=== PATIENT | female | born 1935 | race Two or more races ===

== ENCOUNTER 2019-02-02 10:22 | Inpatient (IN) | payer MEDICAID, OTHER ==
[2019-02-02] VITALS (11 sets, daily range): BP systolic 115–148; BP diastolic 46–93
[~2019-02-02] VITALS: Ht 157.5 cm; Wt 75.3 kg
[2019-02-02 10:59] LABS: Basophils # (auto) 0 uL; Lymphocytes # (auto) 1.4 uL
[2019-02-02 11:00] LABS: Basophils % (auto) 0.8 % (0.0-2.0); Eosinophils # (auto) 0.2 uL; Eosinophils % (auto) 2.7 % (0.0-7.0); Hematocrit 20.5 % (36.0-46.0); Lymphocytes % (auto) 23.7 % (10.0-50.0); Mean Corpuscular Hemoglobin 21.3 pg (28.0-32.0); Mean Corpuscular Hgb Conc. 31.6 g/dL (32.0-36.0); Mean Corpuscular Volume 67.3 fL (80.0-100.0); Monocytes # (auto) 0.4 uL; Monocytes % (auto) 6.8 % (0.0-12.0); Nucleated Red Blood Cells % 0.1 %; Platelet Count (auto) 189 10^3/uL (140-450); Red Blood Cells 3.05 10^6/uL (4.0-5.20)
[2019-02-02 11:04] LABS: Hemoglobin 6.5 g/dL (12.2-16.2); Red Cell Distribution Width 23.5 % (11.8-14.3)
[2019-02-02 11:18] LABS: Albumin 3.4 g/dL (3.4-5.0); Anion Gap 10 (5-15); Aspartate Aminotransferase 18 U/L (15-37); Blood Urea Nitrogen 21 mg/dL (7-18); Calcium 8.7 mg/dL (8.5-10.1); Carbon Dioxide 21 mmol/L (21-32); Chloride 108 mmol/L (98-107); GFR African American 68 mL/min; GFR Non-African American 56 mL/min; Glucose 269 mg/dL (74-106); Magnesium 2.3 mg/dL (1.6-2.6); Potassium 4.2 mmol/L (3.5-5.1); Sodium 139 mmol/L (136-145)
[2019-02-02 11:23] LABS: Alanine Aminotransferase 21 U/L (13-56); Alkaline Phosphatase 43 U/L (45-117); Bilirubin, Total 0.4 mg/dL (0.2-1.0); Total Protein 7.5 g/dL (6.4-8.2)
[2019-02-02] MEDS ORDERED: SODIUM CHLORIDE 0.9% 1,000 ML IVB ONE (12:01)
[2019-02-02] MEDS ORDERED: PANTOPRAZOLE 40 MG/10 ML VIAL INJ IV ONE (12:30)
[2019-02-02 12:51] LABS: Magnesium 2.1 mg/dL (1.6-2.6)
[2019-02-02 13:16] LABS: INR 0.95 (0.9-1.15); Partial Thromboplastin Time 23.4 sec (23.78-33.04); Prothrombin Time 10.2 sec (9.27-12.13)
[2019-02-02 14:55] LABS: Urine Bacteria MOD /hpf (None Seen); Urine Blood Negative /uL (Negative); Urine Specific Gravity 1.014 (1.001-1.035); Urine WBC 18 /hpf (0 - 5)
[2019-02-02] MEDS ORDERED: cefTRIAXone 1GM/50ML D5W 50 ML IV ONE (16:15)
[2019-02-02] MEDS ORDERED: SODIUM CHLORIDE 0.9% 1,000 ML IV ONE (16:30)
[2019-02-02] MEDS ORDERED: MORPHINE SULF INJ 2 MG/ML SYRINGE 1ML IV PRN (16:30)
[2019-02-02] MEDS ORDERED: NITROGLYCERIN 0.4 MG SL TAB SL PRN (16:30)
[2019-02-02] MEDS ORDERED: ACETAMINOPHEN 325 MG TAB PO PRN (16:30)
[2019-02-02] MEDS: PANTOPRAZOLE 80 MG in SODIUM CHL 0.9% 60 ML IV SCH (18:14)
[2019-02-02] MEDS ORDERED: PANTOPRAZOLE 80 MG in SODIUM CHL 0.9% 60 ML IV ONE (20:30)
--- NOTE | 2019-02-02 20:58 | NUR ---
OPENING NOTES RECEIVED PT FROM ED WITH NO SBAR HANDOFF REPORT. PT A/O X4 WITH NO S/S OF DISTRESS NOR PAIN. PT IS STABLE WITH NO S/S OF SOB. BED IS IN LOWEST POSITION WITH SIDE RAILS UP X 2. BED BRAKES ARE LOCKED AND CALL LIGHT IS WITH IN REACH. HOB IS 30 DEGREES. DISCUSSED POC WITH PATIENT AND PT VERBALIZED UNDERSTANDING.
[2019-02-02] MEDS ORDERED: GLIP-116 PO (22:04)
[2019-02-02] MEDS ORDERED: CLOP75TA28 PO (22:04)
[2019-02-02] MEDS ORDERED: METF-370 PO (22:04)
[2019-02-02] MEDS: HYDROcodone-ACET 5/325MG TAB PO PRN (23:06)
[2019-02-03] MEDS: PANTOPRAZOLE 80 MG in SODIUM CHL 0.9% 60 ML IV SCH ×3 (03:29→22:41)
[2019-02-03 05:00] VITALS: BP 117/63
[2019-02-03 06:16] LABS: Basophils # (auto) 0 uL; Eosinophils # (auto) 0.2 uL; Hematocrit 25.2 % (36.0-46.0); Hemoglobin 8.3 g/dL (12.2-16.2); Lymphocytes # (auto) 1.8 uL; Mean Corpuscular Hgb Conc. 32.8 g/dL (32.0-36.0); Nucleated Red Blood Cells % 0.2 %; Platelet Count (auto) 162 10^3/uL (140-450)
[2019-02-03 06:19] LABS: Basophils % (auto) 0.6 % (0.0-2.0); Eosinophils % (auto) 2.6 % (0.0-7.0); Lymphocytes % (auto) 29.9 % (10.0-50.0); Mean Corpuscular Hemoglobin 23.1 pg (28.0-32.0); Mean Corpuscular Volume 70.4 fL (80.0-100.0); Monocytes # (auto) 0.6 uL; Monocytes % (auto) 9.5 % (0.0-12.0); Neutrophils # (auto) 3.5 uL; Neutrophils % (auto) 57.4 % (37.0-80.0); Red Blood Cells 3.58 10^6/uL (4.0-5.20)
[2019-02-03 06:22] LABS: Red Cell Distribution Width 22.8 % (11.8-14.3)
[2019-02-03 06:24] LABS: Potassium 3.6 mmol/L (3.5-5.1)
[2019-02-03 06:27] LABS: BUN/Creatinine Ratio 18.2
--- NOTE | 2019-02-03 07:11 | NUR ---
closing notes endorsed care to day shift nurse
[2019-02-03 08:00] VITALS: BP 135/68
--- NOTE | 2019-02-03 08:00 | NUR ---
PT OFF UNIT TO PREOP FOR EGD VIA BED, NO S/S OF ACUTE DISTRESS NOTED. VS: 98.1, 135/68, 92, 18, 96%, 0/10.
[2019-02-03] MEDS ORDERED: SODIUM CHLORIDE LOCK 10 ML ONE (08:25)
[2019-02-03] MEDS ORDERED: NALOXONE HCL 0.4 MG/ML VIAL ONE (08:25)
[2019-02-03] MEDS ORDERED: LIDOCAINE VISCOUS 2% 15ML UD ONE (08:25)
[2019-02-03] MEDS ORDERED: FLUMAZENIL 0.1 MG/ML INJ 10ML MDV IV ONE (08:25)
[2019-02-03] MEDS ORDERED: diphenhdrAMINE HCL 50 MG/1 ML VL ONE (08:26)
[2019-02-03] MEDS: MIDAZOLAM HCL 5 MG/ML-1ML VIAL ONE ×2 (08:48→08:52)
[2019-02-03] MEDS: fentaNYL CITRATE 100 MCG/2 ML VL ONE ×2 (08:48→08:52)
[2019-02-03] MEDS ORDERED: GOLYTELY 4L KIT PO ONE (09:15)
--- NOTE | 2019-02-03 10:08 | NUR ---
PT BACK TO ROOM. S/P EGD, DAUGHTER AT BEDSIDE. AAO3, BREATHING EVEN UNLABORED, S1, S2, ABD SOFT NONTENDER. VS: 98.2, 16, 110/47, 82, 90% ON 2L VIA N/C, 0/10. WILL CONTINUE TO MONITOR.
[2019-02-03 11:33] VITALS: BP 122/62
[2019-02-03 16:27] VITALS: BP 139/64
--- NOTE | 2019-02-03 16:55 | NUR ---
DR. BAL AT BEDSIDE. NEW ORDER INSULIN ON MILD SCALE. WILL CARRY OUT ORDER.
[2019-02-03] MEDS: InsuLIN REG 1unit/0.01ml Soln (100units/ml) SC SCH ×2 (17:00→22:00)
[2019-02-03] MEDS ORDERED: DEXTROSE (50%) 50ML SYRG IV PRN (17:30)
[2019-02-03] MEDS: ACCU-CHEK COMFORT CURVE STRIP VI SCH ×2 (18:23→22:01)
--- NOTE | 2019-02-03 19:31 | NUR ---
CARE ENDORSED TO LEONEL BONNER.
--- NOTE | 2019-02-03 19:45 | NUR ---
Opening Shift Note Assumed care of patient, awake and alert oriented x4. No S/S of distress/SOB noted. Family at the bedside. Bed is in lowest locked position with bed rails up x2 and call light is within reach of the patient. Instructed on POC and to call for assist PRN.
[2019-02-03 22:00] VITALS: BP 156/83
[2019-02-03] MEDS: HYDROcodone-ACET 5/325MG TAB PO PRN (22:47)
[2019-02-04 05:00] VITALS: BP 111/60
[2019-02-04 06:08] LABS: Basophils # (auto) 0 uL; Basophils % (auto) 0.4 % (0.0-2.0); Eosinophils # (auto) 0.1 uL; Hemoglobin 8.8 g/dL (12.2-16.2); Mean Corpuscular Hemoglobin 23.2 pg (28.0-32.0); Monocytes # (auto) 0.5 uL; Nucleated Red Blood Cells % 0.1 %
[2019-02-04 06:10] LABS: Hematocrit 26.4 % (36.0-46.0); Lymphocytes # (auto) 2.2 uL; Lymphocytes % (auto) 35.1 % (10.0-50.0); Mean Corpuscular Hgb Conc. 33.2 g/dL (32.0-36.0); Mean Corpuscular Volume 69.8 fL (80.0-100.0); Monocytes % (auto) 7.6 % (0.0-12.0); Neutrophils # (auto) 3.4 uL; Neutrophils % (auto) 54.9 % (37.0-80.0); Platelet Count (auto) 165 10^3/uL (140-450); Red Blood Cells 3.78 10^6/uL (4.0-5.20); White Blood Cell 6.3 10^3/uL (4.4-10.8)
[2019-02-04 06:29] LABS: BUN/Creatinine Ratio 12.3; Calcium 7.9 mg/dL (8.5-10.1); Potassium 3.8 mmol/L (3.5-5.1)
[2019-02-04 06:58] LABS: Red Cell Distribution Width 23.3 % (11.8-14.3)
[2019-02-04] MEDS: InsuLIN REG 1unit/0.01ml Soln (100units/ml) SC SCH ×3 (07:00→17:56)
[2019-02-04] MEDS: ACCU-CHEK COMFORT CURVE STRIP VI SCH ×3 (07:00→17:55)
--- NOTE | 2019-02-04 07:26 | NUR ---
OR called: Patient to be brought down to OR at 0800. Care endorsed to day shift nurse.
[2019-02-04] MEDS ORDERED: FLUMAZENIL 0.1 MG/ML INJ 10ML MDV IV ONE (07:56)
[2019-02-04] MEDS ORDERED: NALOXONE HCL 0.4 MG/ML VIAL ONE (07:56)
[2019-02-04] MEDS ORDERED: SODIUM CHLORIDE LOCK 10 ML ONE (07:57)
[2019-02-04 08:00] VITALS: BP 122/62
--- NOTE | 2019-02-04 08:05 | NUR ---
PT OFF UNIT TO PREOP FOR COLONOSCOPY VIA BED, NO S/S OF ACUTE DISTRESS NOTED. VS WNL.
[2019-02-04] MEDS: MIDAZOLAM HCL 5 MG/ML-1ML VIAL ONE ×2 (08:28→08:32)
[2019-02-04] MEDS: fentaNYL CITRATE 100 MCG/2 ML VL ONE ×2 (08:28→08:32)
[2019-02-04 09:00] VITALS: BP 135/62
--- NOTE | 2019-02-04 10:38 | NUR ---
PAGED DR. GOMEZ PER DR. BAL REGARDING CLEARANCE FOR D/C. AWAITING RESPONSE.
--- NOTE | 2019-02-04 10:55 | NUR ---
PT BACK TO ROOM S/P COLONOSCOPY. VS: 97.9, 16, 79, 122/64, 96%, 0/10 ON 2L VIA N/C. FAMILY AT BEDSIDE.
[2019-02-04] MEDS: PANTOPRAZOLE 80 MG in SODIUM CHL 0.9% 60 ML IV SCH ×2 (11:09→19:15)
--- NOTE | 2019-02-04 11:40 | NUR ---
PER DR GOMEZ PT IS CLEARED TO GO HOME. ADVANCE DIET TOLERATE. WILL NOTIFY DR. VALERIANO Pulliam
--- NOTE | 2019-02-04 12:45 | NUR ---
PT TOLERATED CARDIAC 2G NA LOW CHOLEST. NO N/V OR ABD PAIN. WILL CONTINUE CARE.
[2019-02-04 13:00] VITALS: BP 121/58
[2019-02-04 16:42] VITALS: BP 128/57
--- NOTE | 2019-02-04 19:17 | NUR ---
CARE ENDORSED TO LEONEL BONNER.
--- NOTE | 2019-02-04 20:17 | NUR ---
Vicky Called cleared patient: Bank cleared patient for discharged and cleared patient to be on plavix medication. Addendum: 02/04/19 at 2147 by Shiloh Fung RN RN spelling mistake: Doctor Perry
[2019-02-04 20:27] VITALS: BP 138/59
--- NOTE | 2019-02-04 21:47 | NUR ---
Regular Discharge Instructed patient to follow up with primary care physician, GI Doctor Alyson Scott and Machine Molder Vicky Herrera within one to two weeks after discharge. Instructed patient to make an appointment on Thursday for follow up and provided patient with discharge paper work with the addresses and phone numbers of physicians to make follow up appointments. Patient verbalized understanding. Reviewed discharge paperwork with the patient and patient verbalized understanding. Ivs removed from the patient and telemetry box removed from the patient and sent to telemetry. Patient left hospital with family member. No s/s of distress, SOB noted.
== END 2019-02-04 21:45 | disposition home or self-care (01) | DRG 378 ==
LOC: ER 10:22 → TELE 16:35 → TELE-WESTW 20:36
PROVIDERS: ADMIT Internal Medicine; ATTEND Internal Medicine
PROC: 30233N1 Transfusion of Nonautologous Red Blood Cells into Peripheral Vein, Percutaneous Approach (ICD-10-PCS; 2019-02-02)
PROC: 0DB68ZX Excision of Stomach, Via Natural or Artificial Opening Endoscopic, Diagnostic (ICD-10-PCS; principal; 2019-02-03 08:45)
PROC: 0DBH8ZZ Excision of Cecum, Via Natural or Artificial Opening Endoscopic (ICD-10-PCS; 2019-02-04)
DX: K57.31 Diverticulosis of large intestine without perforation or abscess with bleeding (principal); J84.9 Interstitial pulmonary disease, unspecified; R07.9 Chest pain, unspecified; E11.65 Type 2 diabetes mellitus with hyperglycemia; N28.1 Cyst of kidney, acquired; K80.20 Calculus of gallbladder without cholecystitis without obstruction; I70.0 Atherosclerosis of aorta; K64.8 Other hemorrhoids; D12.0 Benign neoplasm of cecum; D50.0 Iron deficiency anemia secondary to blood loss (chronic); I10 Essential (primary) hypertension; K44.9 Diaphragmatic hernia without obstruction or gangrene; K29.70 Gastritis, unspecified, without bleeding; Z85.3 Personal history of malignant neoplasm of breast; Z86.73 Personal history of transient ischemic attack (TIA), and cerebral infarction without residual deficits; Z90.11 Acquired absence of right breast and nipple; Z87.891 Personal history of nicotine dependence; Z90.710 Acquired absence of both cervix and uterus; Z83.3 Family history of diabetes mellitus
CPT/HCPCS: 36415; 36430; 71046; 74176; 80048; 80053; 81001; 82150; 82962; 83036; 83690; 83735; 84484; 85025; 85610; 85730; 86850; 86900; 86901; 86920; 93005; 93306; 94761; 96361; 96374; 99291; C9113; G0378; J0696; J1815; J2250